=== PATIENT | female | born 1980 | race Asian ===

== ENCOUNTER 2017-04-22 15:25 | Emergency (ER) | payer MEDICAID ==
[~2017-04-22] VITALS: Ht 160 cm; Wt 69.2 kg
[2017-04-22 15:27] VITALS: BP 109/68
== END 2017-04-22 17:13 | disposition home or self-care (01) ==
LOC: ED 17:07
DX: K08.89 Other specified disorders of teeth and supporting structures (principal)
CPT/HCPCS: 99283